=== PATIENT | female | born 1965 | race African-American/Black ===

== ENCOUNTER 2017-04-01 13:26 | Inpatient (IN) ==
[2017-04-01] MEDS ORDERED: methylPREDNISolone SOD SUC 125 MG/2 ML VIAL IV STA (14:28)
[2017-04-01] MEDS ORDERED: ONDANSETRON 4 MG/2 ML VIAL IV STA (14:28)
[2017-04-01] MEDS ORDERED: ASPIRIN 325 MG TABLET PO STA (14:28)
[2017-04-01] MEDS ORDERED: NITROGLYCERIN 2% OINT 1 INCH/GM PACK TOP STA (14:28)
[2017-04-01] MEDS ORDERED: cefTRIAXone 1,000 MG in SODIUM CHLORIDE 0.9% 100 ML IV STA (14:28)
[2017-04-01] MEDS ORDERED: MORPHINE 2 MG/1 ML SYRINGE IV STA (14:28)
[2017-04-01] MEDS ORDERED: FUROSEMIDE 100 MG/10 ML VIAL IV STA (14:28)
[2017-04-01] MEDS ORDERED: ALBUTEROL 2.5 MG/3 ML NEB RESP TX SCH (14:30)
[2017-04-01 14:35] LABS: Basophils # 0.1 10*3/uL (0.0-0.2); Basophils % 0.5 % (0.0-0.8); Eosinophils # 1.3 10*3/uL (0.0-0.87); Eosinophils % 10.1 % (0.00-10.9); Hemoglobin 8.8 GM/DL (12.0-16.0); Immature Granulocytes % 0.6 %; Immature Granulocytes Absolute 0.08 #; Lymphocytes # 1.8 10*3/uL (1.4-4.0); Lymphocytes % 13.8 % (21.3-54.2); Mean Corpuscular HGB Conc 31.4 GM/DL (32-36); Mean Corpuscular Hemoglobin 23 PG (27-34); Mean Corpuscular Volume 72.9 FL (87-102); Mean Platelet Volume 9.9 FL (9.6-12.0); Monocytes # 0.7 10*3/uL (0.11-0.8); Monocytes % 5.4 % (1.7-12.7); Neutrophils # 8.8 10*3/uL (1.4-7.4); Neutrophils % 69.6 % (38.7-73.9); Platelet Count 483 T/CUMM (130-400); Red Blood Count 3.84 MC/CUMM (3.8-5.5); Red Cell Distribution Width 14.6 % (9.3-17.3); White Blood Count 12.7 T/CUMM (4-12)
[2017-04-01] MEDS ORDERED: NITROGLYCERIN 2% OINT 1 INCH/GM PACK TOP ONE (14:35)
[2017-04-01] MEDS ORDERED: FUROSEMIDE 40 MG/4 ML VIAL ONE (14:36)
[2017-04-01] MEDS ORDERED: cefTRIAXone 1,000 MG VIAL ONE (14:36)
[2017-04-01] MEDS ORDERED: ASPIRIN 325 MG TABLET ONE (14:36)
[2017-04-01] MEDS ORDERED: methylPREDNISolone SOD SUC 125 MG/2 ML VIAL ONE (14:36)
[2017-04-01] MEDS ORDERED: MORPHINE 2 MG/1 ML SYRINGE ONE (14:36)
[2017-04-01] MEDS ORDERED: ONDANSETRON 4 MG/2 ML VIAL ONE (14:36)
[2017-04-01 14:41] LABS: Apearance,Urine CLOUDY (Clear); Bilirubin,Urine Negative (Negative); Blood, Urine Large mg/dL (Negative); Glucose,Urine (UA) Negative (Negative); INR 1.1; Ketones,Urine Negative (Negative); Nitrite,Urine Negative (Negative); PT Patient Result 11.1 SECS; Protein,Urine 100 MG/DL; RBC,Urine 1337 /HPF (0-4); Squamous Epithelial Cell,Urine Occasional /HPF (0-10); Urine Color Amber (Yellow); Urine Specific Gravity 1.014 (1.001-1.035); WBC,Urine 114 /HPF (0-6)
[2017-04-01 14:48] LABS: Albumin 2.1 G/DL (3.4-5.0); Calcium 8.5 MG/DL (8.5-10.1); Magnesium 2.4 MG/DL (1.8-2.4); Osmolality,Calculated 284.1 MOS/KG (273-304); Potassium 3.3 MMOL/L (3.5-5.1); Total Protein 8.2 G/DL (6.4-8.3)
[2017-04-01 16:04] LABS: Hepatitis A Ab IgM Quant 0.15 Index; Hepatitis A Ab IgM Result Negative (Negative); Hepatitis B Core IgM Quant 0.13 Index; Hepatitis B Core IgM Result Negative (Negative); Hepatitis B Surface Ag Quant 0.32 Index; Hepatitis B Surface Ag Result Negative (Negative); Hepatitis C Virus Ab Quant 0.18 Index; Hepatitis C Virus Ab Result Negative (Negative)
[2017-04-01 16:15] LABS: Barbiturates Screen,Urine Negative (Negative); Benzodiazepines Screen,Urine Negative (Negative); Cannabinoid Screen,Urine Negative (Negative); Opiate Screen,Urine Negative (Negative); Phencyclidine Screen,Urine Negative (Negative)
[2017-04-01] MEDS ORDERED: LEVOFLOXACIN INJ 150 ML IV ONE (16:23)
[2017-04-01] MEDS ORDERED: LEVOFLOXACIN INJ 750 MG in PREMIX 1 EACH IV ONE (16:30)
[2017-04-01] MEDS ORDERED: POTASSIUM CHLORIDE 20 MEQ TABLET PO STA (19:42)
[2017-04-01 20:30] LABS: Protein/Creatinine Ratio,Urine 1.5 RATIO
[2017-04-01] MEDS ORDERED: POTASSIUM CHLORIDE 20 MEQ TABLET PO PRN (21:18)
[2017-04-01] MEDS: SODIUM CHLORIDE 0.9% 1,000 ML IV SCH (21:54)
[2017-04-01 22:07] LABS: Troponin I Only < 0.015 NG/ML (0.00-0.045)
[2017-04-01 22:14] LABS: Magnesium 2.4 MG/DL (1.8-2.4); Uric Acid 11.4 MG/DL (2.6-6.0)
[2017-04-02] MEDS: SODIUM CHLORIDE 0.9% 1,000 ML IV SCH ×4 (03:33→20:26)
[2017-04-02 07:04] LABS: Basophils % 0.1 % (0.0-0.8); Hematocrit 26.2 VOL% (35.7-47.0); Hemoglobin 8.3 GM/DL (12.0-16.0); Immature Granulocytes % 1.3 %; Immature Granulocytes Absolute 0.19 #; Lymphocytes # 1.2 10*3/uL (1.4-4.0); Lymphocytes % 8.6 % (21.3-54.2); Mean Corpuscular HGB Conc 31.7 GM/DL (32-36); Mean Corpuscular Hemoglobin 23 PG (27-34); Mean Corpuscular Volume 72.6 FL (87-102); Mean Platelet Volume 9.6 FL (9.6-12.0); Monocytes # 0.7 10*3/uL (0.11-0.8); Monocytes % 4.8 % (1.7-12.7); Neutrophils # 12.1 10*3/uL (1.4-7.4); Neutrophils % 85.2 % (38.7-73.9); Platelet Count 493 T/CUMM (130-400); Red Blood Count 3.61 MC/CUMM (3.8-5.5); Red Cell Distribution Width 14.7 % (9.3-17.3); White Blood Count 14.2 T/CUMM (4-12)
[2017-04-02 07:39] LABS: Albumin 2.2 G/DL (3.4-5.0); Bilirubin,Direct 0.32 MG/DL (0.0-0.20); Bilirubin,Indirect 0.4 MG/DL (0.0-1.0); Bilirubin,Total 0.7 MG/DL (0.2-1.0); Total Protein 7.6 G/DL (6.4-8.3)
[2017-04-02 07:47] LABS: Calcium 7.7 MG/DL (8.5-10.1); Osmolality,Calculated 292.2 MOS/KG (273-304); Risk Ratio 5.08; Thyroid Stimulating Hormone 0.397 uIU/ml (0.358-3.74); VLDL CHOLESTEROL 20.2 MG/DL
[2017-04-02] MEDS: PANTOPRAZOLE 40 MG TABLET PO SCH (10:11)
[2017-04-02 13:07] LABS: Rheumatoid Factor < 15 IU/ML (<15)
[2017-04-02 13:16] LABS: HIV Screen (Exposures Only) Negative (Negative)
[2017-04-02] MEDS: SODIUM BICARB INJ 50 MEQ in SODIUM CHLORIDE 0.45% 1,000 ML IV SCH (17:57)
[2017-04-03] MEDS ORDERED: ALBUTEROL/IPRATROPIUM 3 ML NEB RESP TX PRN (01:30)
[2017-04-03] MEDS: SODIUM BICARB INJ 50 MEQ in SODIUM CHLORIDE 0.45% 1,000 ML IV SCH (02:35)
[2017-04-03 04:06] LABS: % Iron Saturation 14.1 % (18-50); Basophils % 0.2 % (0.0-0.8); Eosinophils # 0.4 10*3/uL (0.0-0.87); Eosinophils % 2.2 % (0.00-10.9); Hematocrit 26.1 VOL% (35.7-47.0); Hemoglobin 8.4 GM/DL (12.0-16.0); Immature Granulocytes % 1.5 %; Immature Granulocytes Absolute 0.23 #; Lymphocytes # 2.6 10*3/uL (1.4-4.0); Lymphocytes % 16.3 % (21.3-54.2); Mean Corpuscular HGB Conc 32.2 GM/DL (32-36); Mean Corpuscular Hemoglobin 23 PG (27-34); Mean Corpuscular Volume 72.7 FL (87-102); Mean Platelet Volume 9.9 FL (9.6-12.0); Monocytes # 1.1 10*3/uL (0.11-0.8); Monocytes % 7.2 % (1.7-12.7); Neutrophils # 11.4 10*3/uL (1.4-7.4); Neutrophils % 72.6 % (38.7-73.9); Platelet Count 532 T/CUMM (130-400); Red Blood Count 3.59 MC/CUMM (3.8-5.5); Red Cell Distribution Width 14.6 % (9.3-17.3); White Blood Count 15.7 T/CUMM (4-12)
[2017-04-03 04:14] LABS: Albumin 1.8 G/DL (3.4-5.0); Calcium 7.4 MG/DL (8.5-10.1); Osmolality,Calculated 287.4 MOS/KG (273-304); Potassium 3.6 MMOL/L (3.5-5.1)
[2017-04-03 04:17] LABS: Calcium 7.3 MG/DL (8.5-10.1); Osmolality,Calculated 290.2 MOS/KG (273-304); Potassium 3.6 MMOL/L (3.5-5.1)
[2017-04-03] MEDS ORDERED: FUROSEMIDE 40 MG/4 ML VIAL IV ONE (05:30)
[2017-04-03 07:18] LABS: Immuno Free Light Chain Kappa 60.57 MG/DL (0.33-1.94); Immuno Free Light Chain Lambda 17.27 MG/DL (0.57-2.63); Immuno Free Light Chain Ratio 3.51 MG/DL (0.26-1.65)
[2017-04-03] MEDS: ONDANSETRON 4 MG/2 ML VIAL IV PRN ×2 (07:57→12:12)
[2017-04-03] MEDS: PANTOPRAZOLE 40 MG TABLET PO SCH (08:47)
[2017-04-03 09:38] LABS: Albumin (SPE) 2.2 G/DL (3.2-5.3); Alpha 1 (SPE) 0.4 G/DL (0.1-0.4); Alpha 1 (SPE) Rel % 6.4 %; Alpha 2 (SPE) 1.3 G/DL (0.4-1.0); Alpha 2 (SPE) Rel % 17.8 %; Beta (SPE) 0.9 G/DL (0.5-1.1); Beta (SPE) Rel % 12.5 %; Gamma (SPE) 2.3 G/DL (0.7-1.7); Gamma (SPE) Rel % 32.6 %; Total Protein (Chem) 7.2 G/DL (6.4-8.3)
[2017-04-03 10:05] LABS: Hepatitis A Ab IgM Quant 0.14 Index; Hepatitis A Ab IgM Result Negative (Negative); Hepatitis B Core IgM Quant 0.13 Index; Hepatitis B Core IgM Result Negative (Negative); Hepatitis B Surface Ag Quant < 0.10 Index; Hepatitis B Surface Ag Result Negative (Negative); Hepatitis C Virus Ab Quant 0.16 Index; Hepatitis C Virus Ab Result Negative (Negative)
[2017-04-03 10:15] LABS: Random Urine Protein (Bench) 177 MG/DL (<11.9)
[2017-04-03] MEDS: MORPHINE 2 MG/1 ML SYRINGE IV PRN ×3 (11:10→20:05)
[2017-04-03] MEDS ORDERED: ceFAZolin 2,000 MG in PREMIX 1 EACH IV ONE (17:21)
[2017-04-03] MEDS: LEVOFLOXACIN INJ 500 MG in PREMIX 1 EACH IV SCH (17:51)
[2017-04-04 06:41] LABS: Albumin 1.9 G/DL (3.4-5.0); Calcium 7.8 MG/DL (8.5-10.1); Osmolality,Calculated 297.4 MOS/KG (273-304); Potassium 4.4 MMOL/L (3.5-5.1)
[2017-04-04] MEDS ORDERED: HEPARIN 5,000 UNIT/1 ML VIAL ONE (07:53)
[2017-04-04] MEDS ORDERED: BUPIVACAINE 0.25% 50 ML VIAL ONE (07:53)
[2017-04-04] MEDS ORDERED: ONDANSETRON 4 MG/2 ML VIAL ONE (10:05)
[2017-04-04] MEDS ORDERED: MIDAZOLAM 2 MG/2 ML VIAL ONE (10:05)
[2017-04-04] MEDS ORDERED: PROPOFOL 200 MG/20 ML VIAL IV ONE (10:05)
[2017-04-04] MEDS ORDERED: fentaNYL 100 MCG/2 ML VIAL ONE (10:05)
[2017-04-04 11:14] LABS: Creatinine 24 Hr Urine Result 0.1 G/24HR (0.60-1.80)
[2017-04-04 11:22] LABS: Collection Time,Urine 24 HOURS; Total Protein 24 Hr Ur Result 352 MG/24HR (0-149.1); Total Volume,Urine 375 ML (400-2000)
[2017-04-04] MEDS: PANTOPRAZOLE 40 MG TABLET PO SCH (11:45)
[2017-04-04] MEDS ORDERED: HEPARIN 10,000 UNIT/10 ML VIAL IV PRN (14:27)
[2017-04-04 15:41] LABS: Myeloperoxidase Antibody 1.3 U
[2017-04-04] MEDS: MORPHINE 2 MG/1 ML SYRINGE IV PRN (16:43)
[2017-04-04] MEDS: POLYETHYLENE GLYCOL POWDER 17 GM PACK PO SCH (16:45)
[2017-04-05 07:07] LABS: Albumin 1.7 G/DL (3.4-5.0); Calcium 7.8 MG/DL (8.5-10.1); Osmolality,Calculated 291.2 MOS/KG (273-304)
[2017-04-05 07:27] LABS: Albumin 1.8 G/DL (3.4-5.0); Bilirubin,Direct 0.33 MG/DL (0.0-0.20); Bilirubin,Indirect 0.2 MG/DL (0.0-1.0); Bilirubin,Total 0.5 MG/DL (0.2-1.0); Total Protein 6.1 G/DL (6.4-8.3)
[2017-04-05] MEDS ORDERED: tiZANidine 4 MG TABLET PO PRN (10:27)
[2017-04-05] MEDS: POLYETHYLENE GLYCOL POWDER 17 GM PACK PO SCH (13:37)
[2017-04-05] MEDS: methylPREDNISolone SOD SUC INJ 500 MG in SODIUM CHLORIDE 0.9% 100 ML IV SCH (13:37)
[2017-04-05] MEDS: PANTOPRAZOLE 40 MG TABLET PO SCH (13:37)
[2017-04-05] MEDS: MORPHINE 2 MG/1 ML SYRINGE IV PRN (14:40)
[2017-04-05] MEDS ORDERED: DEXTROSE 50% 25 GM/50 ML VIAL IV PRN (15:04)
[2017-04-05] MEDS ORDERED: GLUCAGON 1 MG VIAL IM PRN (15:04)
[2017-04-05] MEDS: LEVOFLOXACIN INJ 500 MG in PREMIX 1 EACH IV SCH (17:12)
[2017-04-05] MEDS: INSULIN LISPRO 100 UNIT/ML SUBCUT SCH ×2 (17:12→21:55)
[2017-04-06] MEDS: ACETAMINOPHEN 325 MG TABLET PO PRN (09:41)
[2017-04-06] MEDS: POLYETHYLENE GLYCOL POWDER 17 GM PACK PO SCH (09:42)
[2017-04-06] MEDS: INSULIN LISPRO 100 UNIT/ML SUBCUT SCH ×3 (09:42→19:09)
[2017-04-06] MEDS: PANTOPRAZOLE 40 MG TABLET PO SCH (09:42)
[2017-04-06] MEDS: methylPREDNISolone SOD SUC INJ 500 MG in SODIUM CHLORIDE 0.9% 100 ML IV SCH (14:06)
[2017-04-07] MEDS: INSULIN LISPRO 100 UNIT/ML SUBCUT SCH ×4 (05:17→16:52)
[2017-04-07 07:12] LABS: Calcium 7.8 MG/DL (8.5-10.1); Osmolality,Calculated 301.8 MOS/KG (273-304); Potassium 4.7 MMOL/L (3.5-5.1)
[2017-04-07] MEDS: POLYETHYLENE GLYCOL POWDER 17 GM PACK PO SCH (13:41)
[2017-04-07] MEDS: PANTOPRAZOLE 40 MG TABLET PO SCH (13:41)
[2017-04-07] MEDS: methylPREDNISolone SOD SUC INJ 500 MG in SODIUM CHLORIDE 0.9% 100 ML IV SCH (15:20)
[2017-04-07] MEDS: LEVOFLOXACIN INJ 500 MG in PREMIX 1 EACH IV SCH (16:51)
[2017-04-07] MEDS: ONDANSETRON 4 MG/2 ML VIAL IV PRN (18:04)
[2017-04-08] MEDS: INSULIN LISPRO 100 UNIT/ML SUBCUT SCH ×5 (00:03→22:47)
[2017-04-08 07:17] LABS: Calcium 7.5 MG/DL (8.5-10.1); Osmolality,Calculated 296.8 MOS/KG (273-304); Potassium 4.3 MMOL/L (3.5-5.1)
[2017-04-08] MEDS ORDERED: riTUXimab 500 MG, riTUXimab 250 MG in SODIUM CHLORIDE 0.9% 675 ML IV ONE (08:45)
[2017-04-08] MEDS ORDERED: ACETAMINOPHEN 325 MG TABLET PO ONE (09:00)
[2017-04-08] MEDS ORDERED: diphenhydrAMINE CAP 25 MG CAPSULE PO ONE (09:00)
[2017-04-08] MEDS: predniSONE 20 MG TABLET PO SCH (09:20)
[2017-04-08] MEDS: POLYETHYLENE GLYCOL POWDER 17 GM PACK PO SCH (09:20)
[2017-04-08] MEDS: PANTOPRAZOLE 40 MG TABLET PO SCH (09:20)
[2017-04-09 07:46] LABS: Calcium 7.1 MG/DL (8.5-10.1); Magnesium 1.9 MG/DL (1.8-2.4); Osmolality,Calculated 305.7 MOS/KG (273-304); Potassium 4.5 MMOL/L (3.5-5.1)
[2017-04-09] MEDS: INSULIN LISPRO 100 UNIT/ML SUBCUT SCH ×4 (07:58→22:41)
[2017-04-09] MEDS: POLYETHYLENE GLYCOL POWDER 17 GM PACK PO SCH (08:12)
[2017-04-09] MEDS: predniSONE 20 MG TABLET PO SCH (08:12)
[2017-04-09] MEDS: PANTOPRAZOLE 40 MG TABLET PO SCH (08:12)
[2017-04-09 12:19] LABS: c-ANCA Negative (Negative); p-ANCA Positive (Negative)
[2017-04-09] MEDS: LEVOFLOXACIN INJ 500 MG in PREMIX 1 EACH IV SCH (16:21)
[2017-04-09] MEDS ORDERED: LEVOFLOXACIN 500 MG TABLET PO SCH (16:30)
[2017-04-09] MEDS: BENZONATATE 100 MG CAPSULE PO PRN (18:28)
[2017-04-10] MEDS: ONDANSETRON 4 MG/2 ML VIAL IV PRN ×2 (01:58→08:52)
[2017-04-10] MEDS: predniSONE 20 MG TABLET PO SCH (08:52)
[2017-04-10] MEDS: PANTOPRAZOLE 40 MG TABLET PO SCH (08:53)
[2017-04-10] MEDS: INSULIN LISPRO 100 UNIT/ML SUBCUT SCH ×3 (08:58→19:22)
[2017-04-10] MEDS: POLYETHYLENE GLYCOL POWDER 17 GM PACK PO SCH (10:22)
[2017-04-10] MEDS: BENZONATATE 100 MG CAPSULE PO PRN (20:28)
[2017-04-11] MEDS: INSULIN LISPRO 100 UNIT/ML SUBCUT SCH ×5 (00:31→20:08)
[2017-04-11] MEDS: ONDANSETRON 4 MG/2 ML VIAL IV PRN ×2 (06:50→13:20)
[2017-04-11] MEDS: PANTOPRAZOLE 40 MG TABLET PO SCH (13:13)
[2017-04-11] MEDS: ACETAMINOPHEN 325 MG TABLET PO PRN (13:14)
[2017-04-11] MEDS: predniSONE 20 MG TABLET PO SCH (13:15)
[2017-04-11] MEDS: POLYETHYLENE GLYCOL POWDER 17 GM PACK PO SCH (13:15)
[2017-04-11] MEDS ORDERED: LEVOFLOXACIN 500 MG TABLET PO SCH (16:00)
[2017-04-12] MEDS: ONDANSETRON 4 MG/2 ML VIAL IV PRN ×2 (05:32→09:47)
[2017-04-12 09:02] LABS: Basophils % 0.1 % (0.0-0.8); Eosinophils # 0.1 10*3/uL (0.0-0.87); Eosinophils % 0.4 % (0.00-10.9); Hemoglobin 8.3 GM/DL (12.0-16.0); Immature Granulocytes % 2.8 %; Immature Granulocytes Absolute 0.48 #; Lymphocytes # 1.3 10*3/uL (1.4-4.0); Lymphocytes % 7.5 % (21.3-54.2); Mean Corpuscular HGB Conc 33.2 GM/DL (32-36); Mean Corpuscular Hemoglobin 23 PG (27-34); Mean Corpuscular Volume 69.8 FL (87-102); Mean Platelet Volume 10.1 FL (9.6-12.0); Monocytes # 2.1 10*3/uL (0.11-0.8); Monocytes % 12.2 % (1.7-12.7); Platelet Count 212 T/CUMM (130-400); Red Blood Count 3.58 MC/CUMM (3.8-5.5); Red Cell Distribution Width 15.6 % (9.3-17.3); White Blood Count 16.9 T/CUMM (4-12)
[2017-04-12 09:29] LABS: Bilirubin,Direct 0.47 MG/DL (0.0-0.20); Bilirubin,Indirect 0.7 MG/DL (0.0-1.0); Bilirubin,Total 1.2 MG/DL (0.2-1.0); Calcium 7.9 MG/DL (8.5-10.1); Magnesium 1.9 MG/DL (1.8-2.4); Osmolality,Calculated 293.7 MOS/KG (273-304); Potassium 4.6 MMOL/L (3.5-5.1); Total Protein 6.4 G/DL (6.4-8.3)
[2017-04-12] MEDS: ACETAMINOPHEN 325 MG TABLET PO PRN ×2 (09:46→20:13)
[2017-04-12] MEDS: PANTOPRAZOLE 40 MG TABLET PO SCH (09:47)
[2017-04-12] MEDS: predniSONE 20 MG TABLET PO SCH (09:47)
[2017-04-12] MEDS: INSULIN LISPRO 100 UNIT/ML SUBCUT SCH ×4 (09:55→21:09)
[2017-04-12] MEDS: POLYETHYLENE GLYCOL POWDER 17 GM PACK PO SCH (17:39)
[2017-04-13 05:11] LABS: Basophils % 0.1 % (0.0-0.8); Eosinophils # 0.1 10*3/uL (0.0-0.87); Eosinophils % 0.3 % (0.00-10.9); Hematocrit 23.3 VOL% (35.7-47.0); Hemoglobin 7.4 GM/DL (12.0-16.0); Immature Granulocytes % 2.6 %; Immature Granulocytes Absolute 0.45 #; Lymphocytes # 1.6 10*3/uL (1.4-4.0); Lymphocytes % 9.1 % (21.3-54.2); Mean Corpuscular HGB Conc 31.8 GM/DL (32-36); Mean Corpuscular Hemoglobin 23 PG (27-34); Mean Corpuscular Volume 71.5 FL (87-102); Mean Platelet Volume 9.7 FL (9.6-12.0); Monocytes % 11.3 % (1.7-12.7); Neutrophils # 13.3 10*3/uL (1.4-7.4); Neutrophils % 76.6 % (38.7-73.9); Platelet Count 215 T/CUMM (130-400); Red Blood Count 3.26 MC/CUMM (3.8-5.5); Red Cell Distribution Width 15.7 % (9.3-17.3); White Blood Count 17.4 T/CUMM (4-12)
[2017-04-13 05:33] LABS: Calcium 7.2 MG/DL (8.5-10.1); Magnesium 2.1 MG/DL (1.8-2.4); Osmolality,Calculated 300.7 MOS/KG (273-304); Potassium 4.8 MMOL/L (3.5-5.1)
[2017-04-13 05:53] LABS: Albumin 1.8 G/DL (3.4-5.0); Calcium 7.2 MG/DL (8.5-10.1); Osmolality,Calculated 301.7 MOS/KG (273-304); Potassium 4.8 MMOL/L (3.5-5.1)
[2017-04-13] MEDS: ONDANSETRON 4 MG/2 ML VIAL IV PRN ×2 (07:32→20:13)
[2017-04-13] MEDS: INSULIN LISPRO 100 UNIT/ML SUBCUT SCH ×4 (08:42→20:18)
[2017-04-13] MEDS: PANTOPRAZOLE 40 MG TABLET PO SCH (09:10)
[2017-04-13] MEDS: POLYETHYLENE GLYCOL POWDER 17 GM PACK PO SCH (09:10)
[2017-04-13] MEDS: predniSONE 20 MG TABLET PO SCH (09:10)
[2017-04-13] MEDS ORDERED: SODIUM CHLORIDE 0.9% 1,000 ML IV PRN (10:49)
[2017-04-13] MEDS ORDERED: EPOETIN ALFA 2,000 UNIT/1 ML VIAL IV PRN (12:47)
[2017-04-13] MEDS: IRON SUCROSE 200 MG in SODIUM CHLORIDE 0.9% 100 ML IV SCH (14:31)
[2017-04-13 15:42] LABS: Apearance,Urine CLOUDY (Clear); Bacteria,Urine Many /HPF (Few); Bilirubin,Urine Negative (Negative); Blood, Urine Large mg/dL (Negative); Glucose,Urine (UA) 50 mg/dL (Negative); Ketones,Urine Negative (Negative); Nitrite,Urine Negative (Negative); Protein,Urine 100 MG/DL; RBC,Urine 440 /HPF (0-4); Squamous Epithelial Cell,Urine Occasional /HPF (0-10); Urine Color Yellow (Yellow); Urine Specific Gravity 1.009 (1.001-1.035); Urine Urobilinogen < 2.0 EU/DL (0.2-1.0); WBC,Urine 17 /HPF (0-6)
[2017-04-13] MEDS: ACETAMINOPHEN 325 MG TABLET PO PRN (20:13)
[2017-04-14 06:10] LABS: Basophils % 0.1 % (0.0-0.8); Eosinophils % 0.1 % (0.00-10.9); Hematocrit 23.6 VOL% (35.7-47.0); Hemoglobin 7.4 GM/DL (12.0-16.0); Immature Granulocytes % 2.9 %; Immature Granulocytes Absolute 0.46 #; Lymphocytes # 1.3 10*3/uL (1.4-4.0); Lymphocytes % 8.4 % (21.3-54.2); Mean Corpuscular HGB Conc 31.4 GM/DL (32-36); Mean Corpuscular Hemoglobin 22 PG (27-34); Mean Corpuscular Volume 71.3 FL (87-102); Mean Platelet Volume 10.9 FL (9.6-12.0); Monocytes # 1.8 10*3/uL (0.11-0.8); Monocytes % 11.3 % (1.7-12.7); Neutrophils # 12.2 10*3/uL (1.4-7.4); Neutrophils % 77.2 % (38.7-73.9); Platelet Count 223 T/CUMM (130-400); Red Blood Count 3.31 MC/CUMM (3.8-5.5); Red Cell Distribution Width 15.9 % (9.3-17.3); White Blood Count 15.8 T/CUMM (4-12)
[2017-04-14 06:34] LABS: Albumin 1.8 G/DL (3.4-5.0); Bilirubin,Direct 0.21 MG/DL (0.0-0.20); Bilirubin,Indirect 0.2 MG/DL (0.0-1.0); Bilirubin,Total 0.4 MG/DL (0.2-1.0); Total Protein 6.2 G/DL (6.4-8.3)
[2017-04-14 06:42] LABS: Albumin 1.8 G/DL (3.4-5.0); Calcium 7.1 MG/DL (8.5-10.1); Osmolality,Calculated 307.7 MOS/KG (273-304); Potassium 4.7 MMOL/L (3.5-5.1)
[2017-04-14] MEDS: INSULIN LISPRO 100 UNIT/ML SUBCUT SCH ×4 (08:58→21:01)
[2017-04-14] MEDS: PANTOPRAZOLE 40 MG TABLET PO SCH (08:59)
[2017-04-14] MEDS: predniSONE 20 MG TABLET PO SCH (08:59)
[2017-04-14] MEDS: IRON SUCROSE 200 MG in SODIUM CHLORIDE 0.9% 100 ML IV SCH (09:00)
[2017-04-14] MEDS: POLYETHYLENE GLYCOL POWDER 17 GM PACK PO SCH (09:00)
[2017-04-14] MEDS: ONDANSETRON 4 MG/2 ML VIAL IV PRN (09:03)
[2017-04-14] MEDS: ACETAMINOPHEN 325 MG TABLET PO PRN (17:01)
[2017-04-15] MEDS: ACETAMINOPHEN 325 MG TABLET PO PRN (05:15)
[2017-04-15] MEDS: ONDANSETRON 4 MG/2 ML VIAL IV PRN (05:15)
[2017-04-15 07:27] LABS: Basophils % 0.1 % (0.0-0.8); Eosinophils % 0.2 % (0.00-10.9); Hematocrit 29.3 VOL% (35.7-47.0); Immature Granulocytes % 2.9 %; Immature Granulocytes Absolute 0.35 #; Lymphocytes # 1.4 10*3/uL (1.4-4.0); Lymphocytes % 11.5 % (21.3-54.2); Mean Corpuscular HGB Conc 34.5 GM/DL (32-36); Mean Corpuscular Hemoglobin 25 PG (27-34); Mean Corpuscular Volume 72.7 FL (87-102); Mean Platelet Volume 10.3 FL (9.6-12.0); Monocytes # 1.7 10*3/uL (0.11-0.8); Monocytes % 13.9 % (1.7-12.7); Neutrophils # 8.5 10*3/uL (1.4-7.4); Neutrophils % 71.4 % (38.7-73.9); Platelet Count 179 T/CUMM (130-400); Red Cell Distribution Width 18.5 % (9.3-17.3); White Blood Count 11.9 T/CUMM (4-12)
[2017-04-15 07:36] LABS: Red Blood Count 4.03 MC/CUMM (3.8-5.5)
[2017-04-15 07:37] LABS: Hemoglobin 10.1 GM/DL (12.0-16.0)
[2017-04-15 07:55] LABS: Albumin 1.9 G/DL (3.4-5.0); Calcium 7.6 MG/DL (8.5-10.1); Osmolality,Calculated 287.1 MOS/KG (273-304); Potassium 4.6 MMOL/L (3.5-5.1)
[2017-04-15 07:58] LABS: Albumin 1.8 G/DL (3.4-5.0); Bilirubin,Direct 0.32 MG/DL (0.0-0.20); Bilirubin,Indirect 0.4 MG/DL (0.0-1.0); Bilirubin,Total 0.7 MG/DL (0.2-1.0); Total Protein 6.3 G/DL (6.4-8.3)
[2017-04-15] MEDS: INSULIN LISPRO 100 UNIT/ML SUBCUT SCH ×3 (07:59→16:41)
[2017-04-15] MEDS: PANTOPRAZOLE 40 MG TABLET PO SCH (09:16)
[2017-04-15] MEDS: IRON SUCROSE 200 MG in SODIUM CHLORIDE 0.9% 100 ML IV SCH (09:16)
[2017-04-15] MEDS: POLYETHYLENE GLYCOL POWDER 17 GM PACK PO SCH (09:16)
[2017-04-15] MEDS: predniSONE 20 MG TABLET PO SCH (09:16)
[2017-04-15] MEDS ORDERED: diphenhydrAMINE CAP 25 MG CAPSULE PO ONE (10:00)
[2017-04-15] MEDS ORDERED: ACETAMINOPHEN 500 MG TABLET PO ONE (10:00)
[2017-04-15] MEDS ORDERED: RITUXIMAB IV ONE ×2 (11:00)
[2017-04-15] MEDS ORDERED: SODIUM CHLORIDE 0.9% IV ONE ×2 (11:00)
[2017-04-15] MEDS: CEFEPIME 1,000 MG in SYRINGE 1 EACH IV SCH (14:24)
[2017-04-16] MEDS: INSULIN LISPRO 100 UNIT/ML SUBCUT SCH ×5 (03:46→21:28)
[2017-04-16 07:01] LABS: Albumin 1.8 G/DL (3.4-5.0); Bilirubin,Direct 0.18 MG/DL (0.0-0.20); Bilirubin,Indirect 0.5 MG/DL (0.0-1.0); Bilirubin,Total 0.7 MG/DL (0.2-1.0); Total Protein 6.3 G/DL (6.4-8.3)
[2017-04-16] MEDS: POLYETHYLENE GLYCOL POWDER 17 GM PACK PO SCH (08:34)
[2017-04-16] MEDS: PANTOPRAZOLE 40 MG TABLET PO SCH (08:38)
[2017-04-16] MEDS: predniSONE 20 MG TABLET PO SCH (08:38)
[2017-04-16] MEDS: IRON SUCROSE 200 MG in SODIUM CHLORIDE 0.9% 100 ML IV SCH (08:38)
[2017-04-16] MEDS ORDERED: EPOETIN ALFA 2,000 UNIT/1 ML VIAL IV PRN (12:00)
[2017-04-16] MEDS ORDERED: EPOETIN ALFA 10,000 UNIT/1 ML VIAL IV PRN (12:30)
[2017-04-16] MEDS: ONDANSETRON 4 MG/2 ML VIAL IV PRN (18:07)
[2017-04-16] MEDS: CEFEPIME 1,000 MG in SYRINGE 1 EACH IV SCH (21:45)
[2017-04-16] MEDS: ACETAMINOPHEN 325 MG TABLET PO PRN (21:53)
[2017-04-17 07:17] LABS: Basophils % 0.2 % (0.0-0.8); Eosinophils # 0.1 10*3/uL (0.0-0.87); Eosinophils % 0.4 % (0.00-10.9); Hematocrit 31.5 VOL% (35.7-47.0); Hemoglobin 10.5 GM/DL (12.0-16.0); Immature Granulocytes % 3.9 %; Immature Granulocytes Absolute 0.48 #; Lymphocytes # 1.9 10*3/uL (1.4-4.0); Lymphocytes % 15.5 % (21.3-54.2); Mean Corpuscular HGB Conc 33.3 GM/DL (32-36); Mean Corpuscular Hemoglobin 25 PG (27-34); Mean Corpuscular Volume 74.1 FL (87-102); Mean Platelet Volume 10.9 FL (9.6-12.0); Monocytes # 1.2 10*3/uL (0.11-0.8); Monocytes % 9.5 % (1.7-12.7); Neutrophils # 8.6 10*3/uL (1.4-7.4); Neutrophils % 70.5 % (38.7-73.9); Platelet Count 203 T/CUMM (130-400); Red Blood Count 4.25 MC/CUMM (3.8-5.5); Red Cell Distribution Width 19.3 % (9.3-17.3); White Blood Count 12.2 T/CUMM (4-12)
[2017-04-17 07:55] LABS: Albumin 1.9 G/DL (3.4-5.0); Bilirubin,Direct 0.3 MG/DL (0.0-0.20); Bilirubin,Indirect 0.6 MG/DL (0.0-1.0); Bilirubin,Total 0.9 MG/DL (0.2-1.0); Total Protein 6.2 G/DL (6.4-8.3)
[2017-04-17 07:57] LABS: Calcium 7.5 MG/DL (8.5-10.1); Magnesium 1.7 MG/DL (1.8-2.4); Osmolality,Calculated 287.8 MOS/KG (273-304); Potassium 4.5 MMOL/L (3.5-5.1)
[2017-04-17] MEDS: INSULIN LISPRO 100 UNIT/ML SUBCUT SCH ×3 (08:14→16:03)
[2017-04-17] MEDS: POLYETHYLENE GLYCOL POWDER 17 GM PACK PO SCH (09:06)
[2017-04-17] MEDS: predniSONE 20 MG TABLET PO SCH (09:06)
[2017-04-17] MEDS: IRON SUCROSE 200 MG in SODIUM CHLORIDE 0.9% 100 ML IV SCH (09:06)
[2017-04-17] MEDS: PANTOPRAZOLE 40 MG TABLET PO SCH (09:06)
[2017-04-17] MEDS: ONDANSETRON 4 MG/2 ML VIAL IV PRN (09:07)
[2017-04-17 17:17] VITALS: BP 138/99
[2017-04-17 17:43] LABS: Creatinine 24 Hr Urine Result 0.11 G/24HR (0.60-1.80)
== END 2017-04-17 16:45 | disposition home or self-care (01) | DRG 673 ==
LOC: N.ED 13:26 → N.EDINP 15:02 → SUATTDRO 15:02 → N.5E 20:12
PROVIDERS: ADMIT Internal Medicine; ATTEND Internal Medicine